=== PATIENT | male | born 1955 | race Caucasian/White ===

== ENCOUNTER 2016-12-13 09:05 | Emergency (ER) | payer OTHER ==
[~2016-12-13] VITALS: Ht 182.9 cm; Wt 129.8 kg
[~2016-12-13 09:05] MED LIST: ATV/2 PO; ATV1 PO; GABA-112 PO; LTR510 PO; OXYC-292 PO; RXC5 PO; TRAM-10 PO; [UNRECOGNIZED DRUG - CODE] PO
[2016-12-13 09:08] VITALS: TEMP 36.5; Ht 182.9 cm; Wt 129.8 kg
--- NOTE | 2016-12-13 09:27 | EMERGENCY ROOM VISIT NOTE ---
History First contact with patient: 09:12 Chief Complaint: BACK PAIN Stated Complaint: BACK PAIN History of Present Illness The patient is a 61 year old male who presents to the Emergency Room with complaints of back pain. The patient has a history of back surgery. Most recently, he had fusion from T10 to the pelvis one year ago by Dr. Salazar. The patient has had pain over the last month but it has been significantly worse over the last 1 week. He was seen at Dr. Salazar's office last week and had x- rays done which looked okay. He states he was told it might be musculoskeletal but a CT scan was going to be ordered. The patient has an appointment with Dr. Salazar on . He states they could not see him sooner and his pain has worsened. The patient states that he feels a deep burning sensation just to the right of the lumbar spine. He rates his discomfort a 6/10. He has been taking oxycodone. The patient states he is not able to lay flat in bed because of the pain. He states he feels a shifting in his back. He denies any fever. He denies any abdominal pain, nausea or vomiting. He denies any knee pain, weakness, numbness, tingling. He denies any loss of bowel or bladder control. Review of Systems A 10 system review of systems was completed with positives and pertinent negatives listed in the HPI. Past Medical/Surgical History Medical Problems: (1) Anxiety (2) Dyslipidemia (3) HTN (hypertension) (4) Idiopathic neuropathy (5) Osteoarthritis (6) Parkinson disease Surgical Problems: (1) H/O spinal fusion (2) History of total hip replacement Social History Smoking Status: Never Smoker Current/Historical Medications Scheduled Amlodipine/Benazepril (Lotrel 5MG/10MG), 1 CAP PO QAM Gabapentin (Neurontin), 300 MG PO 5XD Levodopa/Carbidopa (Carbidopa/Levodopa 25-250 mg), 2 TAB PO QID Scheduled PRN Lorazepam (Ativan), 4 MG PO BID PRN for PRN Oxycodone HCl (Oxycodone HCl), 5-10 MG PO Q4H PRN for Pain Allergies Coded Allergies: No Known Allergies (Verified , 12/13/16) Physical Exam Vital Signs Date Time Temp Pulse Resp B/P Pulse Ox O2 Delivery O2 Flow Rate FiO2 12/13/16 11:36 89 104/80 94 12/13/16 09:08 36.5 82 18 121/82 97 Room Air Physical Exam VITALS: Vitals are noted on the nurse's note and reviewed by myself. Vital signs stable. The patient is afebrile. GENERAL: This is a 61-year-old male, in no acute distress, nondiaphoretic, well- developed well-nourished. SKIN: The skin was without rashes, erythema, edema, or bruising. There is no tenting of the skin. Capillary reflex less than 2 seconds. HEAD: Normocephalic atraumatic. EARS: The external ears are normal in appearance. EYES: Pupils equal round and reactive to light and accommodation. Conjunctivae without injection, sclerae without icterus. Extraocular movements intact. NOSE: Patent, turbinates without inflammation or discharge. MOUTH: Mucous membranes moist. Tonsils are not enlarged. Pharynx without erythema or exudate. Uvula midline. Airway patent. Tongue does not deviate. NECK: Supple without nuchal rigidity. No JVD. HEART: Regular rate and rhythm without murmurs gallops or rubs. LUNGS: Clear to auscultation bilaterally without wheezes, rales or rhonchi. No retractions or accessory muscle use. MUSCULOSKELETAL: No muscle atrophy, erythema, or edema noted. The patient has tenderness to palpation to the lumbar spine and the right paraspinous muscles. The patient has decreased range of motion in the spine. NEURO: Patient was alert and oriented to person place and time. The patient has decreased sensation to the bilateral lower extremities which is baseline with his neuropathy. Deep tendon reflexes in the lower extremity are very diminished. Medical Decision & Procedures ER Provider Diagnostic Interpretation: CT SCAN OF THE LUMBAR SPINE WITHOUT IV CONTRAST CLINICAL HISTORY: Chronic low back pain. COMPARISON STUDY: Radiographs of the lumbar spine dated 01/27/2016. MRI of the lumbar spine dated 06/22/2009. TECHNIQUE: CT scan of the lumbar spine is performed from the lower thoracic spine to the sacrum. Images reviewed in the axial, sagittal, and coronal planes. IV contrast was not administered for this examination. FINDINGS: The skeletal structures are osteopenic. Chronic compression deformities of L1 and L2 with associated endplate sclerosis are unchanged. There are postoperative changes from extensive thoracolumbar spinal fusion. There has been laminectomy and posterior fusion at all lumbar levels. Interpedicular screws are present at all levels with the exception of L2. There is discontinuity of the left spinous arya seen at the level of L1. This is best seen on sagittal image 139. The hardware is otherwise intact as visualized. Iliac bolts are in place. No acute fracture or malalignment is identified. Vertebral body height is maintained from L3 to L5. There is minimal anterolisthesis of L3-L4 and L4-L5. There is straightening of the lumbar lordosis. Anterior osteophytes are seen throughout. There are changes from discectomy at L1-L2, L2-L3, L4-L5, and L5-S1. There is no evidence of large disc herniation. The central canal is clear as imaged. The transverse processes are intact as visualized. There is no evidence of spondylolysis. No lytic or blastic lesions are seen. The visualized sacrum and bony pelvis appear intact. A right hip arthroplasty is partially imaged. Postoperative change is seen throughout the paraspinous soft tissues. There is a nonobstructing left renal calculus. No retroperitoneal adenopathy is seen. There is atherosclerotic calcification of the abdominal aorta. IMPRESSION: 1. No acute bony abnormality is seen involving the lumbosacral spine. 2. Chronic findings and extensive postoperative change as above. 3. There is discontinuity of the spinal arya on the left at the level of L1. Followup with the patient's orthopedic surgeon is recommended. [~ rep ct add3]] THORACIC SPINE CT CT DOSE: 2007.55 mGy.cm HISTORY: back pain, h/o fusion TECHNIQUE: Multiaxial CT images of the thoracic spine were performed and reformatted in the sagittal and coronal plane without the use of contrast. COMPARISON: None. FINDINGS: No acute fractures or subluxation within the thoracic spine. There is mild degenerative disc disease seen throughout the thoracic spine. Evaluation of the central canal is limited due to the CT technique. However, there is no definite central canal narrowing at the thoracic spine. There is a fracture within the left spinal arya at the level of the L1 pedicle screw. This is best seen on sagittal image 87 of 152. This demonstrates 5 mm of posterior displacement. This results in posterior angulation at the proximal aspect of the left spinal arya within the lower thoracic spine. There is also mild periprosthetic lucency surrounding the bilateral T11 pedicle screws consistent with loosening. IMPRESSION: 1. Fractured and mildly displaced spinal arya at the level of the left L1 pedicle screw. There is associated mild posterior angulation of the proximal left spinal arya at the lower thoracic spine. There is also mild periprosthetic lucency within the bilateral T11 pedicle screws consistent with loosening. 2. No acute fracture or subluxation within the thoracic spine. ED Course The patient was seen and examined. Previous visits were reviewed. The patient declined pain medication. CT scan of the lumbar spine and thoracic spine were obtained at as above. The findings do suggest that the arya is broken at the L1 pedicle. There is also question of some loosening. The patient states that he has been told that the arya is broken but cannot recall exactly at what level. The patient has not had any loss of bowel or bladder control or saddle anesthesia. He does have neuropathy and decreased sensation. He does not appear to have any acute neurologic deficit on exam. I did ask to speak with orthopedic spine surgery, Tania Tamayo PA-C, and was awaiting her phone call. The patient stated that he wanted to be discharged. 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 The patient states he has pain medication at home. I agreed to discharge him. After he was discharged, Tania did call back. I did review the films with her and she felt that this was not a new finding. The patient already has an appointment with orthopedic spine surgery on and she would ensure that the patient has follow-up. The patient was encouraged to return to the ER with any worsening symptoms. The case was discussed with Dr. Sinha who agrees with assessment and treatment plan. Medical Decision DIFFERENTIAL DIAGNOSIS: Lumbar strain, degenerative disc disease, spondylolisthesis, herniated disc, spinal stenosis, osteoporosis, fracture, cauda equina syndrome, neoplasm, infection, inflammatory arthritis, among others. Impression Primary Impression: Back pain Additional Impression: Loosening of hardware in spine Departure Information Dispostion Home / Self-Care Condition GOOD Referrals Kendall Alston M.D. (PCP) Shamir Salazar D.O. Patient Instructions Back Pain - [facility], [facility] Additional Instructions Continue your pain medication as prescribed, as needed Follow-up with orthopedics on Return with any fevers, loss of bowel or bladder control or generalized worsening symptoms Problem Qualifiers Primary Impression: Back pain Back pain location: low back pain Chronicity: chronic Back pain laterality : right Sciatica presence: without sciatica Qualified Codes: M54.5 - Low back pain; G89.29 - Other chronic pain
--- NOTE | 2016-12-13 10:44 | DIAGNOSTIC IMAGING REPORT ---
THORACIC SPINE CT CT DOSE: 2007.55 mGy.cm HISTORY: back pain, h/o fusion TECHNIQUE: Multiaxial CT images of the thoracic spine were performed and reformatted in the sagittal and coronal plane without the use of contrast. COMPARISON: None. FINDINGS: No acute fractures or subluxation within the thoracic spine. There is mild degenerative disc disease seen throughout the thoracic spine. Evaluation of the central canal is limited due to the CT technique. However, there is no definite central canal narrowing at the thoracic spine. There is a fracture within the left spinal arya at the level of the L1 pedicle screw. This is best seen on sagittal image 87 of 152. This demonstrates 5 mm of posterior displacement. This results in posterior angulation at the proximal aspect of the left spinal arya within the lower thoracic spine. There is also mild periprosthetic lucency surrounding the bilateral T11 pedicle screws consistent with loosening. IMPRESSION: 1. Fractured and mildly displaced spinal arya at the level of the left L1 pedicle screw. There is associated mild posterior angulation of the proximal left spinal arya at the lower thoracic spine. There is also mild periprosthetic lucency within the bilateral T11 pedicle screws consistent with loosening. 2. No acute fracture or subluxation within the thoracic spine. Electronically signed by: Laci Styles M.D. 12/13/2016 10:42 AM Dictated Date/Time: 12/13/2016 10:31 AM
--- NOTE | 2016-12-13 10:49 | DIAGNOSTIC IMAGING REPORT ---
CT SCAN OF THE LUMBAR SPINE WITHOUT IV CONTRAST CLINICAL HISTORY: Chronic low back pain. COMPARISON STUDY: Radiographs of the lumbar spine dated 01/27/2016. MRI of the lumbar spine dated 06/22/2009. TECHNIQUE: CT scan of the lumbar spine is performed from the lower thoracic spine to the sacrum. Images reviewed in the axial, sagittal, and coronal planes. IV contrast was not administered for this examination. FINDINGS: The skeletal structures are osteopenic. Chronic compression deformities of L1 and L2 with associated endplate sclerosis are unchanged. There are postoperative changes from extensive thoracolumbar spinal fusion. There has been laminectomy and posterior fusion at all lumbar levels. Interpedicular screws are present at all levels with the exception of L2. There is discontinuity of the left spinous arya seen at the level of L1. This is best seen on sagittal image 139. The hardware is otherwise intact as visualized. Iliac bolts are in place. No acute fracture or malalignment is identified. Vertebral body height is maintained from L3 to L5. There is minimal anterolisthesis of L3-L4 and L4-L5. There is straightening of the lumbar lordosis. Anterior osteophytes are seen throughout. There are changes from discectomy at L1-L2, L2-L3, L4-L5, and L5-S1. There is no evidence of large disc herniation. The central canal is clear as imaged. The transverse processes are intact as visualized. There is no evidence of spondylolysis. No lytic or blastic lesions are seen. The visualized sacrum and bony pelvis appear intact. A right hip arthroplasty is partially imaged. Postoperative change is seen throughout the paraspinous soft tissues. There is a nonobstructing left renal calculus. No retroperitoneal adenopathy is seen. There is atherosclerotic calcification of the abdominal aorta. IMPRESSION: 1. No acute bony abnormality is seen involving the lumbosacral spine. 2. Chronic findings and extensive postoperative change as above. 3. There is discontinuity of the spinal arya on the left at the level of L1. Followup with the patient's orthopedic surgeon is recommended. Dictated: 12/13/2016 10:30 AM Transcribed: 12/13/2016 10:49 AM [facility] Electronically signed by: Guanakito Velasco M.D. 12/13/2016 10:50 AM Dictated Date/Time: 12/13/2016 10:30 AM
[2016-12-13 11:36] VITALS: BP 104/80; PULSE 89; O2SAT 94
[2017-05-08] MEDS ORDERED: OXYC1TAB3 PO (09:04)
[2017-05-08] MEDS ORDERED: [UNRECOGNIZED DRUG - OTHER] PO (09:05)
[2017-05-08] MEDS ORDERED: GLUCTAB7 PO (09:05)
[2017-05-08] MEDS ORDERED: IBUP-1050 PO (09:06)
[2017-05-08] MEDS ORDERED: OMEG10007 PO (09:06)
[2017-05-08] MEDS ORDERED: CALC500C3 PO (09:14)
[2017-05-18] MEDS ORDERED: RXC5 PO (15:04)
== END 2016-12-13 11:58 | disposition home or self-care (01) ==
LOC: C.EDB 09:06 → C.EDA 11:58
DX: M54.5 Low back pain (principal); G89.29 Other chronic pain; T84.038A Mechanical loosening of other internal prosthetic joint, initial encounter; I10 Essential (primary) hypertension; G20 Parkinson's disease; G60.9 Hereditary and idiopathic neuropathy, unspecified; M19.90 Unspecified osteoarthritis, unspecified site; Z98.1 Arthrodesis status; Y83.1 Surgical operation with implant of artificial internal device as the cause of abnormal reaction of the patient, or of later complication, without mention of misadventure at the time of the procedure; Z96.698 Presence of other orthopedic joint implants; Z96.649 Presence of unspecified artificial hip joint; Z79.899 Other long term (current) drug therapy

== ENCOUNTER → 2017-04-26 | Outpatient (CLI) | payer OTHER ==
[~2017-04-26] MED LIST changes: -ATV1 PO; +CALC500C3 PO; +GLUCTAB7 PO; +IBUP-1050 PO; +OMEG10007 PO; -OXYC-292 PO; +OXYC1TAB3 PO; -TRAM-10 PO; +[UNRECOGNIZED DRUG - OTHER] PO
--- NOTE | 2017-04-26 13:11 | DIAGNOSTIC IMAGING REPORT ---
CT OF THE THORACIC SPINE WITHOUT CONTRAST CLINICAL HISTORY: Thoracic pain. History of spinal fusion. COMPARISON STUDY: CT of the thoracic spine December 13, 2016 and MRI of the thoracic spine performed earlier today. FINDINGS: A thoracolumbar spine fusion is partially imaged on this exam. The superior aspect of the fusion is at the T11 level. There is lucency surrounding the bilateral T11 pedicle screws, as shown on prior exam. These pedicle screws extend into the superior endplate. There is minimal gas within the T10-T11 disc space. There is discontinuity of the left spinal arya at the L1 level. This was present on prior exam. There has been interval development of discontinuity of the right spinal arya at the L1 level. There is significant erosion with bone loss of the inferior endplate of T10 and superior endplate of T11. Loss of height of the superior endplate of L2 is unchanged. Otherwise, the appearance of the thoracic spine is unchanged. There is no acute fracture. Paravertebral soft tissues are unremarkable. Central canal is suboptimally assessed by CT technique but there is no evidence of high-grade central canal stenosis. IMPRESSION: 1. Status post thoracolumbar spine fusion. Discontinuity of the bilateral spinal rods at the L1 level, as described above. 2. Lucency surrounding the bilateral T11 pedicle screws suggestive of loosening. These pedicle screws slightly extend through the superior endplate of T11. Bony erosion of the inferior endplate of T10 and superior endplate of T11 is nonspecific but may be due to abnormal motion/instability at this level. Discitis/osteomyelitis could appear similar although is considered slightly less likely. The findings could be correlated with clinical evidence for infectious process. 3. No acute thoracic spine fracture. Electronically signed by: Elvis Goodman M.D. 04/26/2017 1:09 PM Dictated Date/Time: 04/26/2017 12:17 PM
== END | disposition home or self-care (01) ==
LOC: C.CTS 11:25
PROVIDERS: ATTEND Orthopaedic Surgery Orthopaedic Surgery of the Spine
DX: M54.6 Pain in thoracic spine (principal); Z98.1 Arthrodesis status

== ENCOUNTER → 2017-04-26 | Outpatient (CLI) | payer OTHER ==
--- NOTE | 2017-04-26 13:12 | DIAGNOSTIC IMAGING REPORT ---
MRI OF THE THORACIC SPINE WITHOUT CONTRAST CLINICAL HISTORY: Thoracic pain. COMPARISON: CT of the thoracic spine December 13, 2016 and lumbar spine MRI June 22, 2009. TECHNIQUE: Utilizing a 0.7 Angelina open magnet and dedicated coil, multiplanar, multiecho imaging of the thoracic spine was performed without IV contrast. FINDINGS: A thoracolumbar spine fusion is partially imaged on this exam. The upper extent of the fusion is at the T11 level. There is increased fluid signal within the T10-T11 intervertebral disc. There is associated marrow signal abnormality within the T10 and T11 vertebral bodies which is centered on the disc space. There is no paravertebral edema. There is no epidural fluid collection within the thoracic canal. The T11 pedicle screws may extend into the superior endplate of T11. There is mild loss of height of the inferior endplate of T11 with bone loss/remodeling. Disc space narrowing at L1-L2 with loss of height of L1 is better shown on prior CT. Thoracic cord signal and caliber are normal. Paravertebral soft tissues are unremarkable. IMPRESSION: 1. Status post thoracolumbar spine fusion which is partially imaged on this exam. Increased fluid signal within the T10-T11 intervertebral disc with associated marrow signal abnormality within the T10 and T11 vertebral bodies. T11 pedicle screws likely extend into the superior endplate of T11. The findings within the T10-T11 disc space are nonspecific but may be related to abnormal motion/instability at this level. Discitis/osteomyelitis could appear similar although is considered less likely. This could be correlated with clinical evidence for an infectious process. 2. No epidural fluid collection. No paravertebral edema. Electronically signed by: Elvis Goodman M.D. 04/26/2017 1:11 PM Dictated Date/Time: 04/26/2017 11:12 AM
== END | disposition home or self-care (01) ==
LOC: C.OPENMRI 09:43
PROVIDERS: ATTEND Orthopaedic Surgery Orthopaedic Surgery of the Spine
DX: M54.6 Pain in thoracic spine (principal); Z98.1 Arthrodesis status

== ENCOUNTER 2017-05-17 07:15 | Inpatient (IN) | payer OTHER ==
[2017-05-08 09:07] VITALS: BMI 39.0
--- NOTE | 2017-05-08 09:38 | PAT Medication Instructions ---
Service Date May 08, 2017. Current Home Medication List Amlodipine/Benazepril (Lotrel 5MG/10MG), 1 CAP PO QAM Calcium Carbonate (Tums), 2 TAB PO PRN Fish Oil ([place]-3), 2 CAP PO QPM Gabapentin (Neurontin), 300 MG PO Q3H Yxwzqpbzxzr-Gzmndjmzfvd-Opp C- (Glucosamine Chondroitin), 1 TAB PO BID Ibuprofen (Advil), 400 MG PO BID Levodopa/Carbidopa (Carbidopa/Levodopa 25-250 mg), 1 TAB PO Q3H Lorazepam (Ativan), 4 MG PO BID Oxycodone Ir (Roxicodone Ir), 5-10 MG PO Q3H PRN for rn [curcumin turmeric], 1 TAB PO BID Medication Instructions For Your Scheduled Surgery - Check with surgeon for instructions: Ibuprofen (Advil), 400 MG PO BID - Hold the following medications 2 weeks prior to surgery: [curcumin turmeric], 1 TAB PO BID Ywqbanxgwzz-Bhtoaxmdopp-Anb C- (Glucosamine Chondroitin), 1 TAB PO BID Fish Oil ([place]-3), 2 CAP PO QPM - Hold the following medications the morning of surgery: Calcium Carbonate (Tums), 2 TAB PO PRN Amlodipine/Benazepril (Lotrel 5MG/10MG), 1 CAP PO QAM - Take the following medications the morning of surgery with a sip of water: Levodopa/Carbidopa (Carbidopa/Levodopa 25-250 mg), 1 TAB PO Q3H Lorazepam (Ativan), 4 MG PO BID Oxycodone Ir (Roxicodone Ir), 5-10 MG PO Q3H PRN for rn (okay to take up to 4 hours prior to surgery if needed) Gabapentin (Neurontin), 300 MG PO Q3H - Take the following medications as scheduled the night before surgery: Levodopa/Carbidopa (Carbidopa/Levodopa 25-250 mg), 1 TAB PO Q3H Lorazepam (Ativan), 4 MG PO BID Oxycodone Ir (Roxicodone Ir), 5-10 MG PO Q3H PRN for rn (if needed) Gabapentin (Neurontin), 300 MG PO Q3H If you have any questions please call us at [phone] or [phone] or [phone]
[2017-05-08 10:39] LABS: BASO % 0.4 %; BASO ABS # 0.02 K/uL (0-0.2); COMPLETE YES; EOS % 1.7 %; HEMATOCRIT 41.7 % (42-52); IG% 0.2 %; LYMPH % 31.5 %; LYMPH ABS # 1.65 K/uL (1.2-3.4); MEAN CELL VOLUME 85.3 fL (80-100); MEAN CORPUSCULAR HEMOGLOBIN 29.7 pg (25-34); MEAN CORPUSCULAR HGB CONC 34.8 g/dl (32-36); MEAN PLATELET VOLUME 9.8 fL (7.4-10.4); MONO % 7.8 %; NEUT % 58.4 %; PLATELET COUNT 171 K/uL (130-400); RED BLOOD COUNT 4.89 M/uL (4.7-6.1); URINE APPEARANCE CLEAR (CLEAR); URINE BILIRUBIN NEG (NEG); URINE COLOR YELLOW; URINE NITRITE NEG (NEG); URINE SPECIFIC GRAVITY 1.024 (1.000-1.030); UROBILINOGEN NEG (NEG); WHITE BLOOD COUNT 5.23 K/uL (4.8-10.8); ZZUR CULT IF INDIC CLEAN CATCH NO
[2017-05-08 10:44] LABS: MANUAL MICROSCOPIC REQUIRED? NO; REVIEW REQ? NO
[2017-05-08 10:48] LABS: BUN/CREATININE RATIO 20.3 (10-20); CALCIUM 9.3 mg/dl (8.5-10.1); CREATININE 0.9 mg/dl (0.60-1.40); POTASSIUM 4.6 mmol/L (3.5-5.1)
--- NOTE | 2017-05-08 10:51 | DIAGNOSTIC IMAGING REPORT ---
CHEST PREADMISSION(PA/LAT) HISTORY: Preop. COMPARISON: Chest 06/12/2014. FINDINGS: The lungs are clear. Cardiac silhouette is normal in size. No pleural effusions. No pneumothorax. Lower thoracic and lumbar spine fusion hardware. IMPRESSION: No acute process. Electronically signed by: Laci Styles M.D. 05/08/2017 10:49 AM Dictated Date/Time: 05/08/2017 10:48 AM
[~2017-05-17] VITALS: Ht 182.9 cm; Wt 129.5 kg
[2017-05-17] VITALS (8 sets, daily range): BP systolic 102–123; BP diastolic 68–89; PULSE 76–94; TEMP 36.4–36.9; O2SAT 95–100; Ht 182.9 cm; Wt 129.5 kg
[~2017-05-17 07:15] MED LIST changes: +CEFAZOLIN 3000 MG/65 ML D5W IV SCH; +LACTATED RINGER'S 1000ML 1,000 ML IV SCH; -RXC5 PO
[2017-05-17] MEDS ORDERED: LIDOCAINE HCL 2% 2 ML VIAL (20MG/ML) ONE (08:18)
[2017-05-17] MEDS ORDERED: NEOSTIGMINE METHYLSULFATE 1 MG/ML 10ML VIAL ONE (08:18)
[2017-05-17] MEDS ORDERED: FENTANYL CITRATE INJ 50 MCG/1 ML 2 ML VIAL ONE ×2 (08:18→13:06)
[2017-05-17] MEDS ORDERED: MIDAZOLAM HCL 1 MG/ML 2ML VIAL ONE (08:18)
[2017-05-17] MEDS ORDERED: ONDANSETRON INJ 2 MG/ML 2 ML VIAL ONE ×2 (08:18→13:07)
[2017-05-17] MEDS ORDERED: GLYCOPYRROLATE INJ 0.2 MG/ML VIAL ONE (08:18)
[2017-05-17] MEDS ORDERED: PROPOFOL IV EMULSION 10 MG/ML 20 ML VIAL IV ONE (08:18)
[2017-05-17] MEDS ORDERED: DEXAMETHASONE SOD INJ 4 MG/ML VIAL ONE ×2 (08:18→13:07)
[2017-05-17] MEDS ORDERED: ROCURONIUM BROMIDE 10 MG/ML 5 ML VIAL ONE ×2 (08:18→11:13)
--- NOTE | 2017-05-17 08:36 | History & Physical Bridge Note ---
H&P Re-Evaluation Bridge Note: I have examined the patient, reviewed the History & Physical and in the interval since the performance of the History & Physical I have noted the following changes of clinical significance: No changes noted
--- NOTE | 2017-05-17 08:37 | History and Physical ---
History & Physical Date May 17, 2017. Chief Complaint Back pain History of Present Illness The patient is a 61 year old male with complaints of worsening thoracal lumbar back pain Past Medical/Surgical History Medical Problems: (1) Anxiety (2) Dyslipidemia (3) HTN (hypertension) (4) Idiopathic neuropathy (5) Osteoarthritis (6) Parkinson disease Surgical Problems: (1) H/O spinal fusion (2) History of total hip replacement Additional History Hepatic Disease: No Endocrine Disorder: No Kidney Disease: No Hypertension: Yes Heart Disease: No Bleeding Tendencies: No Infectious Diseases: No Allergies Coded Allergies: No Known Allergies (Verified , 05/17/17) Home Medications Scheduled Amlodipine/Benazepril (Lotrel 5MG/10MG), 1 CAP PO QAM Calcium Carbonate (Tums), 2 TAB PO PRN Fish Oil ([place]-3), 2 CAP PO QPM Gabapentin (Neurontin), 300 MG PO Q3H Jzvwxrphymw-Njjmwcgbznv-Tsf C- (Glucosamine Chondroitin), 1 TAB PO BID Ibuprofen (Advil), 400 MG PO BID Levodopa/Carbidopa (Carbidopa/Levodopa 25-250 mg), 1 TAB PO Q3H Lorazepam (Ativan), 4 MG PO BID [curcumin turmeric], 1 TAB PO BID Scheduled PRN Oxycodone Ir (Roxicodone Ir), 5-10 MG PO Q3H PRN for rn Physical Examination Skin: warm/dry, no rash Eyes: normal inspection, EOMI, sclerae normal ENT: normal ENT inspection, pharynx normal Head: normocephalic, atraumatic Neck: supple, no adenopathy, trachea midline Respiratory/Chest: lungs clear, normal breath sounds, no respiratory distress Cardiovascular: regular rate, rhythm, no edema, no murmur Abdomen / GI: normal bowel sounds, non tender Back: normal inspection Extremities: normal inspection, normal range of motion Neurologic/Psych: no motor/sensory deficits, alert, normal reflexes, oriented x 3 Diagnosis Spinal stenosis T10-T11 with broken hardware Plan of Treatment Removal of all thoracolumbar instrumentation T11 to S1 decompression T10-T11 with fusion T7 to S1
[2017-05-17] MEDS ORDERED: SODIUM CHLORIDE 0.9% PF 50 ML VIAL ONE (08:55)
[2017-05-17] MEDS ORDERED: BUPIVACAINE/EPINEPHRINE 0.5% MPF 1:200,000 10 ML VIAL ONE ×2 (08:55→09:03)
[2017-05-17] MEDS ORDERED: BACITRACIN 50000 UNIT VIAL ONE (08:55)
[2017-05-17] MEDS: THROMBIN FOR SOLN 20000 UNIT KIT ONE (08:55)
[2017-05-17] MEDS ORDERED: HYDROmorphone INJ 2 MG/ML SYR/VIAL ONE (09:44)
[2017-05-17] MEDS ORDERED: ATROPINE SULFATE 0.1 MG/ML 5ML SYR IV PRN (10:00)
[2017-05-17] MEDS ORDERED: ONDANSETRON INJ 2 MG/ML 2 ML VIAL IV PRN ×2 (10:00→13:00)
[2017-05-17] MEDS ORDERED: LABETALOL HCL IV 5 MG/ML 20ML IV PRN (10:00)
[2017-05-17] MEDS ORDERED: MEPERIDINE HCL 25 MG/ML CARP IV PRN (10:00)
[2017-05-17] MEDS ORDERED: EpHEDrine SULFATE INJ 50 MG/ML AMP IV PRN (10:00)
[2017-05-17] MEDS ORDERED: EpHEDrine SULFATE 50MG/5ML SYR ONE (11:13)
[2017-05-17] MEDS ORDERED: CEFAZOLIN SOD 1 GM VIAL ONE ×3 (12:45→12:47)
[2017-05-17] MEDS ORDERED: FLOSEAL HEMOSTATIC MATRIX 10ML TOP ONE (12:52)
[2017-05-17] MEDS ORDERED: ACETAMINOPHEN 500 MG TAB PO PRN (13:00)
[2017-05-17] MEDS ORDERED: ALUMINUM/MAGNESIUM SUSP 30 ML UDC PO PRN (13:00)
[2017-05-17] MEDS: LACTATED RINGER'S 1000ML 1,000 ML IV SCH ×2 (13:00→20:03)
[2017-05-17] MEDS ORDERED: hydrOXYzine HCL 25 MG TAB PO PRN (13:00)
[2017-05-17] MEDS ORDERED: LORAZEPAM INJ 0.5 MG in SYRINGE 0.75 ML IV PRN (13:00)
[2017-05-17] MEDS ORDERED: FAMOTIDINE 20 MG TAB PO PRN (13:00)
[2017-05-17] MEDS ORDERED: SODIUM CHLORIDE 0.9% 1000ML 1,000 ML IV SCH (13:00)
[2017-05-17] MEDS ORDERED: SOD PHOSPHATE/SOD BIPHOSPHATE ENEMA 132 ML BTL PR PRN (13:00)
[2017-05-17] MEDS ORDERED: ACETAMINOPHEN IV 100 ML IV PRN (13:00)
[2017-05-17] MEDS ORDERED: NALOXONE HCL 0.4 MG/1 ML VIAL/CARP IV PRN ×2 (13:00)
[2017-05-17] MEDS ORDERED: MAGNESIUM HYDROXIDE SUSP 30 ML UDC PO PRN (13:00)
[2017-05-17] MEDS ORDERED: METOCLOPRAMIDE HCL INJ 5 MG/ML 2 ML VIAL IV PRN (13:00)
[2017-05-17] MEDS ORDERED: PROMETHAZINE HCL INJ 12.5 MG in SODIUM CHLORIDE 0.9% 50ML 50 ML IV PRN (13:00)
[2017-05-17] MEDS ORDERED: DO NOT ADMINISTER FLU VACCINE PRN ×3 (13:00)
[2017-05-17] MEDS ORDERED: DO NOT ADMINISTER PNEUMOCOCCAL VACCINE PRN ×2 (13:00)
[2017-05-17] MEDS ORDERED: BISACODYL 10 MG SUPP PR PRN (13:00)
--- NOTE | 2017-05-17 13:14 | [facility] Operative Report ---
Operative Report Operative Date May 17, 2017. Pre-Operative Diagnosis Spinal stenosis T10-T11 with broken hardware Post-Operative Diagnosis Spinal stenosis T10-T11 with broken hardware Procedure(s) Performed #1 removal of posterior instrumentation T11 T12 L1. #2 expiration of fusion T11 T12 L1. #3 lumbar decompression medial facetectomies T10 T11 T11 T12 T12 L1. #4 posterior spinal fusion T7 to L2. #5 placement of posterior segmental instrumentation T7 to L2. #6 interbody fusion T8 10 at T11 T12 L1. #7 placement peek cage 9 x 26 mm T 1011 T 12 L1. #8 placement of locally harvested morcellized autograft in the posterior lateral gutters. #9 placement of infuse calm sponge combined Master graft in the posterior gutters DBM in the interbody spaces. Surgeon Dr. Salazar Gear Generator Set Up Operator Surgeon(s) Tania Baker PA-C Estimated Blood Loss 950 cc Findings Spinal stenosis Specimens A: Explanted hardware Description of Procedure Patient was met with preoperatively case discussed all questions are dressed with a point patient was taken back to the operative suite after undergoing successful intubation placed in a prone position on the Riki table on top Brady frame. All bony promises well-padded eyes inspected to ensure no external pressure. This point the thoracal lumbar spines prepped draped nostril fashion. Sharp dissection with the assistance of Bovie cautery was performed onto an exposing the lamina and transverse processes of T7-T8 T9-T10 and instrumentation at T11 T12 L1 and L2. Then proceeded remove the hardware at T 1112 L1 and L2 to being the area of the fractured arya. Were the fusion mass noting a nonunion T 12 L1. Karel performed a decompression of T10 T11 T12. After this complete pedicle screws were placed and T7-T8 T9-T10 T11 T12 after this is complete through a transforaminal approach on the right a complete discectomy of T12-L1 was performed and plate created to subcortical bleeding bone and a 9 x 22 6 mm peek cage filled with DBM tapped in position. Then proceeded to T 1011 into a transforaminal approach on another discectomy was performed and plate create a subcortical bleeding bone and a 9 x 26 Luz peek cage filled with DBM tapped in position purposes rods were contoured and locked in position bilaterally connecting to the previous rods with Burrel connectors. Incision was in copious irrigated. The transverse processes of T7 T8 T9 T10 T11 T12 and the fusion mass at L1-2 was burred to subcortical bleeding bone. Infuse calm sponge mask graft locally harvested morcellized autograft placed posterior gutters. 15 round JENNY drain inserted. Incision then closed with 1 Vicryl in the fascia 2-0 Vicryl subcutaneously 4 Monocryl for final skin closure Steri-Strips sterile dressing placed patient awakened and taken to PACU stable condition. Please note Tania Tamayo was present throughout the entire procedure involved in patient positioning and final skin closure. I attest to the content of the Intraoperative Record and any orders documented therein. Any exceptions are noted below.
--- NOTE | 2017-05-17 13:47 | DIAGNOSTIC IMAGING REPORT ---
INTRAOPERATIVE FLUOROSCOPIC IMAGES OF THE THORACOLUMBAR SPINE CLINICAL HISTORY: Hardware removal. Thoracolumbar decompression and fusion. COMPARISON STUDY: CT of the thoracic spine April 26, 2017. Fluoroscopy time: 49 seconds. FINDINGS: 6 fluoroscopic images were obtained. Exact localization is difficult given incomplete visualization of the thoracic and lumbar spine. These images demonstrate multilevel thoracolumbar spine decompression, fusion and discectomy. Visualized hardware appears intact. IMPRESSION: Fluoroscopic images demonstrating multilevel thoracolumbar spine decompression, discectomy and fusion. Electronically signed by: Elvis Goodman M.D. 05/17/2017 1:45 PM Dictated Date/Time: 05/17/2017 1:42 PM
[2017-05-17] MEDS: FENTANYL CITRATE INJ 50 MCG/1 ML 2 ML VIAL IV PRN ×6 (13:51→14:40)
[2017-05-17] MEDS: HYDROmorphone HCL 0.5MG/ML 50 ML CASSETTE IV PRN ×3 (13:55→22:58)
--- NOTE | 2017-05-17 14:12 | Anesthesiology Progress Note ---
Anesthesia Post Op Note Date & Time May 17, 2017 at 14:08 Vital Signs Pain Intensity: 6.0 Vital Signs Past 12 Hours Date Time Temp Pulse Resp B/P (MAP) Pulse Ox O2 Delivery O2 Flow Rate FiO2 05/17/17 13:34 36.1 83 16 140/84 100 Mask 10 05/17/17 07:50 36.8 76 20 123/89 95 Room Air Notes Mental Status: alert / awake / arousable, participated in evaluation Pt Amnestic to Procedure: Yes Nausea / Vomiting: adequately controlled Pain: adequately controlled Airway Patency, RR, SpO2: stable & adequate BP & HR: stable & adequate Hydration State: stable & adequate Anesthetic Complications: no major complications apparent Pt awake in PACU, VSS. Complaining of left eye irritation. Says that he occasionally has similar sensation at home after sleep which is relieved by irrigation. Nurse using NSS drops presently and pt says starting to feel better. There was no evident trauma and no visible FB in eye. Pt states satisfied with NSS irrigation at this time.
[2017-05-17] MEDS: HYDROmorphone INJ 1 MG/ML SYR IV PRN ×3 (14:46→14:59)
[2017-05-17] MEDS: CARBIDOPA/LEVODOPA 25-250 1 EA TAB PO SCH ×2 (18:16→21:23)
[2017-05-17] MEDS: GABAPENTIN 300 MG CAP PO SCH ×2 (18:17→21:23)
[2017-05-17] MEDS: CEFAZOLIN IV 3,000 MG in DEXTROSE 5% 50ML 50 ML IV SCH (20:30)
[2017-05-17] MEDS: DOCUSATE SODIUM/SENNA 50/8.6MG TAB PO SCH (21:23)
[2017-05-17] MEDS: DEXAMETHASONE INJ 6 MG in SYRINGE 0 ML IV SCH (21:24)
[2017-05-17] MEDS: LORAZEPAM 0.5 MG TAB PO PRN (21:28)
[2017-05-18] MEDS: CARBIDOPA/LEVODOPA 25-250 1 EA TAB PO SCH ×7 (00:31→21:24)
[2017-05-18] MEDS: GABAPENTIN 300 MG CAP PO SCH ×7 (00:31→21:25)
[2017-05-18] MEDS: LACTATED RINGER'S 1000ML 1,000 ML IV SCH (00:53)
[2017-05-18] MEDS ORDERED: GABAPENTIN 300 MG CAP PO SCH (02:00)
[2017-05-18] MEDS: CEFAZOLIN IV 3,000 MG in DEXTROSE 5% 50ML 50 ML IV SCH (04:25)
[2017-05-18 04:30] VITALS: BP 110/72; PULSE 87; TEMP 36.5; O2SAT 97
[2017-05-18 05:43] LABS: COMPLETE YES; HEMATOCRIT 33.8 % (42-52); IG% 0.3 %; LYMPH % 5.9 %; LYMPH ABS # 0.65 K/uL (1.2-3.4); MEAN CELL VOLUME 84.7 fL (80-100); MEAN CORPUSCULAR HEMOGLOBIN 28.1 pg (25-34); MEAN CORPUSCULAR HGB CONC 33.1 g/dl (32-36); MEAN PLATELET VOLUME 9.9 fL (7.4-10.4); MONO % 5.5 %; NEUT % 88.3 %; PLATELET COUNT 174 K/uL (130-400); RED BLOOD COUNT 3.99 M/uL (4.7-6.1); WHITE BLOOD COUNT 11.07 K/uL (4.8-10.8)
[2017-05-18] MEDS ORDERED: HYDROmorphone INJ 0.5 MG/0.5 ML SYR IV PRN (06:00)
[2017-05-18] MEDS ORDERED: DC PCA SCH (06:00)
[2017-05-18] MEDS ORDERED: HYDROmorphone INJ 1 MG/ML SYR IV PRN (06:00)
[2017-05-18] MEDS: DEXAMETHASONE INJ 6 MG in SYRINGE 0 ML IV SCH ×2 (06:05→13:32)
[2017-05-18] MEDS: LORAZEPAM 0.5 MG TAB PO PRN ×2 (06:06→18:17)
[2017-05-18] MEDS ORDERED: NURSING VERBAL MED ORDER ONE (06:15)
[2017-05-18 06:17] LABS: BUN/CREATININE RATIO 18.4 (10-20); CALCIUM 7.9 mg/dl (8.5-10.1); POTASSIUM 4.5 mmol/L (3.5-5.1)
[2017-05-18 06:59] VITALS: BP 109/72; PULSE 89; TEMP 36.6; O2SAT 97
[2017-05-18] MEDS: OXYCODONE HCL IR 5 MG TAB (IMMEDIATE RELEASE) PO PRN ×4 (07:53→21:25)
[2017-05-18] MEDS: AMLODIPINE BESYLATE 5 MG TAB PO SCH (08:50)
[2017-05-18] MEDS: BENAZEPRIL HCL 10 MG TAB PO SCH (08:51)
[2017-05-18 10:25] VITALS: BP 108/74; PULSE 103; TEMP 36.6; O2SAT 94
--- NOTE | 2017-05-18 14:58 | Progress Note ---
Progress Note Date of Service May 18, 2017. Progress Note Patient is doing very nicely. Back pain controlled. No leg pain. He has been ambulating with a cane. Vital signs are stable. JENNY drain decreasing probably. Assessment status post thoracal lumbar fusion. Plan at this time we were moving forth a TLSO brace. This will be worn when he is up and ambulatory. We are considering discharge over the next few days with home health.
[2017-05-18] MEDS ORDERED: RXC5 PO (15:04)
--- NOTE | 2017-05-18 15:05 | Discharge Instructions ---
Discharge Instructions Date of Service May 18, 2017. Admission Reason for Admission: Spinal Stenosis Discharge Discharge Diagnosis / Problem: spinal stenosis Discharge Goals Goal(s): Improve function Activity Recommendations Activity Limitations: per Instructions/Follow-up section . Instructions / Follow-Up Instructions / Follow-Up ACTIVITY RECOMMENDATIONS: SELF CARE INSTRUCTIONS AFTER THORACIC/LUMBAR FUSIONS 1. You may walk to your tolerance. It is good exercise for your legs and back. Expect some back and intermittent leg aches and pains. 2. You may perform "counter-top" level activities (make a sandwich, bryce with a project, etc.). 3. No bending or lifting of more than 10 pounds or back twisting of any nature (roll like a log when turning in bed). 4. You may ride in a car for 20-30 minutes at a time. No driving until after your first visit with your doctor. 5. Frequent changes of position and restricting sitting to 30 minutes at a time will help limit the amount of back spasms and stiffness you may experience. 6. You may discontinue the use of ambulatory aids (cane, crutches, etc.) once your strength and confidence allow. 7. You may extrusion machine operator the shower and let water strike your incision when you arrive home at least once daily. Do not take a tub bath, sit in a hot tub or go into a swimming pool until after your first recheck in the office. SPECIAL CARE INSTRUCTIONS: VERY IMPORTANT TO READ AND REVIEW A. Your surgical incision has been closed with a cosmetic suture under the skin that will dissolve in about 6 weeks. In 14 days, you can use a pair of clean scissors and cut the suture that is left outside of the skin at the ends of your incision. 1. The small skin tapes can be removed 7 days after surgery if they have not fallen off by that point. 2. You may keep the wound open to air as much as possible to promote healing after post-op day number 5 unless told otherwise by your doctor. 3. If you think the wound looks like it is becoming infected (redness or worsening drainage) and/or you are experiencing fever, chill or worsening back pain and muscle spasms, contact the office so that we may evaluate you as soon as possible. B. Complications are uncommon, but please contact us if you have any signs or symptoms of: 1. wound infection (fever higher than 102.5 degrees F, redness, separation of wound, drainage, or increasing pain from the incision) 2. blood clots in legs (pain, swelling, redness and warmth in legs) 3. urinary tract infection (fever higher than 102.5 degrees F, burning upon urination or increased frequency of urination) 4. nerve problems (inability to walk on your toes or heels, numbness, loss of bowel or bladder control) 5. any other symptoms that concern you C. Please call the office at if you have any concerns or questions about your operation or recovery. D. No smoking! Smoking drastically decreases the chance of a solid fusion. E. Do not take any anti-inflammatory medications (Indocin, Advil, Motrin, Aspirin, Naprosyn, etc.) as these may inhibit the chance of a solid fusion. Tylenol is okay to take for pain. MANAGING PAIN AFTER SPINAL SURGERY 1. Narcotic medication is intended for short-term use and will be provided for surgical pain. Surgical pain usually lasts for a period of 4-6 weeks. Narcotic medication includes Percocet, Vicodin, Darvocet, Tylenol #3 or Lortab. 2. Longer-term pain is more appropriately treated with non-narcotic medication such as Tylenol ES. 3. Muscle spasm is not appropriately treated with narcotics. Muscle relaxers such as Soma, Flexeril or Skelaxin can be used along with Tylenol ES. 4. Remember that we all live with some "aches and pains". This is not unusual or uncommon after an injury or as we get older. a. Back pain is expected and may include muscle spasms for 4 to 6 weeks after surgery. The pain should gradually improve. If the pain worsens for no apparent reason, please contact the office. b. Intermittent leg pain may also be experienced and should not be concerned about unless it worsens for no apparent reason. If so, please contact the office. 5. We will provide appropriate medication within the normal guidelines of their prescribed use. We will also be very cautious and aware of potential abuse and extended duration of patients' medication needs. a. Pain medications are for your comfort and to assist with sleep and rest so that the tissue can heal. They are not provided in order to return to normal activity and should not be used through the day. To do so or worsening pain at night can result from ongoing tissue damage and development of tolerance to the prescribed medicine. 6. Please allow 2-3 days to process refills. Prescriptions will not be mailed but must be picked up at the office. FOLLOW UP VISIT: Keep your scheduled follow-up appointment. Any questions, please call the office at . Current Hospital Diet Patient's current hospital diet: Regular Diet Discharge Diet Recommended Diet: Regular Diet Procedures Procedures Performed: #1 removal of posterior instrumentation T11 T12 L1. #2 expiration of fusion T11 T12 L1. #3 lumbar decompression medial facetectomies T10 T11 T11 T12 T12 L1. #4 posterior spinal fusion T7 to L2. #5 placement of posterior segmental instrumentation T7 to L2. #6 interbody fusion T8 10 at T11 T12 L1. #7 placement peek cage 9 x 26 mm T 1011 T 12 L1. #8 placement of locally harvested morcellized autograft in the posterior lateral gutters. #9 placement of infuse calm sponge combined Master graft in the posterior gutters DBM in the interbody spaces. Pending Studies Studies pending at discharge: no Medical Emergencies . Who to Call and When: Medical Emergencies: If at any time you feel your situation is an emergency, please call 911 immediately. . Non-Emergent Contact Non-Emergency issues call your: Primary Care Provider . "Provider Documentation" section prepared by Shamir Salazar. . VTE Core Measure Inpt VTE Proph given/why not?: Ishmael Wood, [facility]
[2017-05-18 15:44] VITALS: BP 98/67; PULSE 86; TEMP 36.5; O2SAT 95
[2017-05-18] MEDS: DOCUSATE SODIUM/SENNA 50/8.6MG TAB PO SCH (21:38)
[2017-05-18 22:49] VITALS: BP 110/78; PULSE 97; TEMP 36.7; O2SAT 100
[2017-05-19] MEDS ORDERED: CARBIDOPA/LEVODOPA 25-250 1 EA TAB PO SCH
[2017-05-19] MEDS ORDERED: GABAPENTIN 300 MG CAP PO SCH
[2017-05-19] MEDS: OXYCODONE HCL IR 5 MG TAB (IMMEDIATE RELEASE) PO PRN ×3 (01:01→13:20)
[2017-05-19] MEDS: LORAZEPAM 0.5 MG TAB PO PRN (02:01)
[2017-05-19] MEDS: CARBIDOPA/LEVODOPA 25-250 1 EA TAB PO SCH ×4 (06:12→14:55)
[2017-05-19] MEDS: GABAPENTIN 300 MG CAP PO SCH ×4 (06:12→14:55)
[2017-05-19] MEDS: POLYETHYLENE (MIRALAX) 17 GM PACK PO SCH ×2 (06:12→12:37)
[2017-05-19 07:45] VITALS: O2SAT 100
[2017-05-19 07:59] VITALS: BP 112/76; PULSE 86; TEMP 36.5; O2SAT 98
[2017-05-19 08:02] VITALS: O2SAT 98
[2017-05-19] MEDS: BENAZEPRIL HCL 10 MG TAB PO SCH (08:54)
[2017-05-19] MEDS: AMLODIPINE BESYLATE 5 MG TAB PO SCH (08:55)
--- NOTE | 2017-05-19 10:14 | Clinical Documentation Query ---
GEOVANNI Reyes : CLINICAL DOCUMENTATION QUERY Patient is a 61 year old male admitted for elective posterior spinal decompression and fusion. Preoperative H&H was 14.5 g/dl adn 41.7%. POD #1, repeat values were 11.2 g/dl and 33.8%. EBL for the procedure was 950 ml's. with subsequently documented losses to date totaling an additional 1,145 ml's. Patient is being monitored with I/O including drain outputs. In your clinical opinion is this patient being managed for: ( ) Acute blood loss anemia ( ) Other explanation of clinical findings (Please Explain) ( ) Unable to determine (Please Define) ( ) Need to Discuss ( ) Not Agree The medical record reflects the following clinical findings, treatment, and risk factors. Clinical Indicators: 2,095 ml's acute blood loss Treatment:Patient is being monitored with I/O including drain outputs. Risk Factors: Acute perioperative blood losses. Please clarify and document your clinical opinion in the progress notes and discharge summary. Terms such as "probable", "suspected", "likely", "questionable", "possible", or "still to be ruled out" are acceptable. IF IN AGREEMENT, YOU MUST DOCUMENT ABOVE DIAGNOSTIC STATEMENT IN DAILY PROGRESS NOTES AND DISCHARGE SUMMARY. This document is not part of the patient's record. Thank You, Carl High RN [phone]
[2017-05-19 13:50] VITALS: BP 112/76; PULSE 86; TEMP 36.5; O2SAT 98
--- NOTE | 2017-05-19 15:24 | Discharge Summary ---
Orthopedic Discharge Summary Admission Date/Reason May 17, 2017 at 07:50 Spinal Stenosis. Discharge Date/Disposition May 19, 2017 Home with services Diagnosis Principal Diagnosis: Spinal stenosis Admission Physical Exam As per Admitting History & Physical. Hospital Course Patient underwent lumbar decompression fusion tolerated this well as taken to the orthopedic 4 postop we. Postoperative day #1 pins controlled ambulation improving. Progressive postop day #2 socially discharge home discharge orders and instructions can be found on the chart for further review. Discharge Instructions Please refer to the electronic Patient Visit Report (Discharge Instructions) for additional information.
== END 2017-05-19 15:15 | disposition home health service (06) | DRG 460 ==
LOC: C.ACU 07:15 → C.3E 07:50 → ENRESERV 14:19
PROVIDERS: ADMIT Orthopaedic Surgery Orthopaedic Surgery of the Spine; ATTEND Orthopaedic Surgery Orthopaedic Surgery of the Spine
PROC: 0RG70Z1 (ICD-10-PCS; principal; 2017-05-17 09:15)
PROC: 0RTB0ZZ Resection of Thoracolumbar Vertebral Disc, Open Approach (ICD-10-PCS; principal; 2017-05-17 09:15)
PROC: 0SP004Z Removal of Internal Fixation Device from Lumbar Vertebral Joint, Open Approach (ICD-10-PCS; principal; 2017-05-17 09:15)
PROC: 0RG60AJ Fusion of Thoracic Vertebral Joint with Interbody Fusion Device, Posterior Approach, Anterior Column, Open Approach (ICD-10-PCS; principal; 2017-05-17 09:15)
PROC: 0RGA0AJ Fusion of Thoracolumbar Vertebral Joint with Interbody Fusion Device, Posterior Approach, Anterior Column, Open Approach (ICD-10-PCS; principal; 2017-05-17 09:15)
PROC: 0RPA04Z Removal of Internal Fixation Device from Thoracolumbar Vertebral Joint, Open Approach (ICD-10-PCS; principal; 2017-05-17 09:15)
PROC: 0RT90ZZ Resection of Thoracic Vertebral Disc, Open Approach (ICD-10-PCS; principal; 2017-05-17 09:15)
PROC: 0RP604Z Removal of Internal Fixation Device from Thoracic Vertebral Joint, Open Approach (ICD-10-PCS; principal; 2017-05-17 09:15)
DX: M48.04 Spinal stenosis, thoracic region (principal); T84.216A Breakdown (mechanical) of internal fixation device of vertebrae, initial encounter; Y83.1 Surgical operation with implant of artificial internal device as the cause of abnormal reaction of the patient, or of later complication, without mention of misadventure at the time of the procedure; Z98.1 Arthrodesis status; Z96.641 Presence of right artificial hip joint; Z79.1 Long term (current) use of non-steroidal anti-inflammatories (NSAID); Z79.899 Other long term (current) drug therapy

== ENCOUNTER → 2018-02-26 | Outpatient (CLI) | payer OTHER ==
[~2018-02-26] MED LIST changes: +AMLO-710 PO; +ASPECOTC PO; -CEFAZOLIN 3000 MG/65 ML D5W IV SCH; -IBUP-1050 PO; +IBUP-1459 PO; -LACTATED RINGER'S 1000ML 1,000 ML IV SCH; -LTR510 PO; +RXC5 PO; +SNM/25100 PO
== END | disposition home or self-care (01) ==
LOC: C.CTS 09:40
PROVIDERS: ATTEND Orthopaedic Surgery
DX: Z01.818 Encounter for other preprocedural examination (principal); M19.019 Primary osteoarthritis, unspecified shoulder